=== PATIENT | male | born 1985 | race Caucasian/White ===

== ENCOUNTER 2020-09-18 10:45 | Day surgery (SDC) | payer BC ==
[2020-09-18] VITALS (7 sets, daily range): BP systolic 123–129; BP diastolic 71–85; PULSE 68–83; TEMP 97.3–98.4
[~2020-09-18] VITALS: Ht 190.5 cm; Wt 96.2 kg
[2020-09-18] MEDS ORDERED: HYCET SOLN PO ×3 (15:02→16:49)
[2020-09-18] MEDS ORDERED: MOTRIN SUSP20 MG/ML PO (15:05)
--- NOTE | 2020-09-18 15:15 | NUR ---
Pt arrived back to room via cart with BLEACH ANALYST, Joanna. Received report. Pt awake, alert but a little "loopy" per pt. Pt oriented x4. Pt states that he has some achiness in his belly, but pain is mild. Pt denies nausea. VSS and WNL. Brought pt water per request. No issues with drinking. Call light within reach.
--- NOTE | 2020-09-18 15:30 | NUR ---
Pt sitting up in bed and says he "feels great." Denies any pain beyond some mild pain and denies nausea. Pudding brought per pt's preference. VSS and WNL. Call light within reach and at bedside.
--- NOTE | 2020-09-18 15:45 | NUR ---
Pudding brought per pt's preference, and was able to finish 2 without issues. VSS and WNL - pain level mild and tolerable.
--- NOTE | 2020-09-18 16:00 | NUR ---
Pt up to bathroom and was able to urinate with no issues. Pt ambulated easily with 1 SBA. denies dizziness or concerns about ambulation. VSS and WNL. pt states that he is readyh to go home.
--- NOTE | 2020-09-18 16:20 | NUR ---
Reviewed discharge information with patient and including education packet and new medication information. Made appoitnment for follow up with Dr. Talbert. Reviewed signs and symptoms to watch out for and when to call the doctor. Also reviewed activity restrictions. Pt and had no further questions at this time. VSS and WNL upon discharge.
== END 2020-09-18 16:25 | disposition home or self-care (01) ==
LOC: SDCO 10:45
DX: K40.20 Bilateral inguinal hernia, without obstruction or gangrene, not specified as recurrent (principal); Z79.899 Other long term (current) drug therapy; Z88.2 Allergy status to sulfonamides; Z91.011 Allergy to milk products; Z20.822 Contact with and (suspected) exposure to COVID-19; Z90.89 Acquired absence of other organs
CPT/HCPCS: C1781; J0690; J1100; J1885; J2405; J2704; J3010; J7120